=== PATIENT | male | born 1980 | race African-American/Black ===

== ENCOUNTER 2018-08-16 03:46 | Emergency (ER) | payer OTHER ==
[~2018-08-16] VITALS: Ht 188 cm; Wt 91.0 kg
[2018-08-16] MEDS ORDERED: TETANUS, DIPHTHERIA, PERTUSSIS VAC/PF 0.5ML (>7YR OLD) IM ONE (04:15)
[2018-08-16] MEDS ORDERED: CARBAMAZEPINE 200MG TABLET PO ONE (04:45)
[2018-08-16] MEDS ORDERED: LORAZEPAM 2MG/ML CPJ ONE (04:49)
[2018-08-16] MEDS ORDERED: LIDOCAINE HCL/EPINEPHRINE 1%-EPI 1:100,000 30 ML VIAL INFIL ONE (05:00)
[2018-08-16] MEDS ORDERED: ZIPRASIDONE MESYLATE 20MG/VIAL IM ONE (05:15)
[2018-08-16] MEDS ORDERED: ZIPRASIDONE MESYLATE 20MG/VIAL IM NR (05:15)
[2018-08-16 05:59] LABS: HEMATOCRIT 52.1 % (42.0-52.0); HEMOGLOBIN 16.4 g/dL (14.0-18.0); MEAN CORPUSCULAR HEMOGLOBIN 31.3 pg (28.0-32.0); MEAN CORPUSCULAR VOLUME 99.3 fL (80.0-94.0); PLATELET 437 x1000/uL (130-400); RED BLOOD CELL COUNT 5.25 mill/uL (4.7-6.1); RED CELL DISTRIBUTION WIDTH 14.6 % (11.6-14.6)
[2018-08-16 06:01] LABS: CHLORIDE 107 mEq/L (98-107)
[2018-08-16] MEDS ORDERED: HALOPERIDOL LACTATE 5MG/ML VIAL IM ONE (07:00)
[2018-08-16] MEDS ORDERED: LORAZEPAM 2MG/ML CPJ IM ONE (07:00)
[2018-08-16] MEDS ORDERED: CARBAMAZEPINE 200MG TABLET PO NR (11:31)
[2018-08-16 15:34] VITALS: BP 132/80
== END 2018-08-16 15:38 | disposition home or self-care (01) ==
LOC: ER 04:25
DX: G40.909 Epilepsy, unspecified, not intractable, without status epilepticus (principal); Z91.19 Patient's noncompliance with other medical treatment and regimen; S01.112A Laceration without foreign body of left eyelid and periocular area, initial encounter; R03.0 Elevated blood-pressure reading, without diagnosis of hypertension; Y93.9 Activity, unspecified; W19.XXXA Unspecified fall, initial encounter; Y92.038 Other place in apartment as the place of occurrence of the external cause; Z23 Encounter for immunization; Z88.0 Allergy status to penicillin; M54.2 Cervicalgia
CPT/HCPCS: 12011; 36415; 70450; 70486; 71045; 72125; 80048; 82962; 85027; 90471; 90715; 96372; 99284; J1630; J2060; J3486